=== PATIENT | male | born 1975 | race Caucasian/White ===

== ENCOUNTER → 2018-11-30 07:23 | Outpatient (CLI) | payer OTHER, SELFPAY ==
--- NOTE | 2018-11-30 | DI.RAD.S_ITS ---
PROCEDURE: FL UPPER GI W AIR INDICATIONS: DYSPHAGIA COMPARISON: None. FINDINGS: KUB: Preprocedural license examiner film demonstrates a normal bowel gas pattern. No suspicious abdominal calcifications. Visualized solid organ contours appear normal. Bony structures appear unremarkable. Esophagus: Esophageal mucosa is normal on air-contrast views. On single-contrast views, there is normal esophageal peristalsis. No strictures, extrinsic mass effects, or diverticula. No hiatal hernia . There is spontaneous gastroesophageal reflux to the level of the thoracic inlet.. Stomach: The stomach is normally distensible, with normal rugal fold thickness. No mucosal masses or ulcers. Pylorus and duodenal bulb appear normal in morphology. Duodenal folds are normal in thickness as well. IMPRESSION: Spontaneous gastroesophageal reflux to level of the thoracic inlet. Dictated by: Sang Salmeron M.D. on 11/30/2018 at 11:49 Approved by: Sang Salmeron M.D. on 11/30/2018 at 11:50
== END ==
PROVIDERS: PCP Family Medicine; Visit Provider Family Medicine
DX: R13.10 Dysphagia, unspecified (principal); K21.9 Gastro-esophageal reflux disease without esophagitis
CPT/HCPCS: 74247

== ENCOUNTER 2019-08-22 12:34 | Outpatient (CLI) | payer OTHER, SELFPAY | END 2019-08-22 16:00 | LOC: PHYS 12:35 | PROVIDERS: PCP Family Medicine; Visit Provider Family Medicine | DX: G56.02 Carpal tunnel syndrome, left upper limb (principal) | CPT/HCPCS: 95885; 95886; 95913 ==

== ENCOUNTER → 2023-07-31 15:04 | Outpatient (CLI) | payer OTHER, SELFPAY ==
--- NOTE | 2023-07-31 | DI.NM.S_ITS ---
PROCEDURE: NM EXERCISE TREADMILL NON NUC COMPARISON: None. INDICATIONS: PRIMARY HYPERTENSION, resting blood pressure 140/100 FINDINGS: Rest ECG sinus rhythm. Inder protocol 12:16, maximum heart rate 152 bpm (88% peak predicted), maximum blood pressure 202/102, 12.8 METS, RANI -12%. Exercise ECG sinus tachycardia, no ST segment changes or arrhythmia. Occasional PVCs noted in recovery. The patient did not complain of exercise-induced chest discomfort. IMPRESSION: Low risk study. No evidence of exercise-induced ischemia or arrhythmia. Baseline hypertension with normal hemodynamic response. Good exercise capacity. Dictated by: Elizabeth Steiner D.O. on 07/31/2023 at 16:44 Approved by: Elizabeth Steiner D.O. on 07/31/2023 at 16:47
== END ==
PROVIDERS: PCP Family Medicine; Referring Provider Family Medicine; Visit Provider Family Medicine
DX: I10 Essential (primary) hypertension (principal)
CPT/HCPCS: 93017

== ENCOUNTER → 2024-01-25 11:43 | Outpatient (ROUT) | payer OTHER, SELFPAY | PROVIDERS: PCP Family Medicine; Visit Provider Dermatology | DX: L02.821 Furuncle of head [any part, except face] (principal) | CPT/HCPCS: 87070; 87077; 87147; 87205 ==